=== PATIENT | female | born 1995 | race Hispanic/Latino ===

== ENCOUNTER 2024-04-02 17:16 | Emergency (ER) | payer BC, OTHER | END 2024-04-02 19:06 | disposition home or self-care (01) | LOC: CSHERS 17:16 | DX: F31.11 Bipolar disorder, current episode manic without psychotic features, mild (principal); I10 Essential (primary) hypertension; E11.9 Type 2 diabetes mellitus without complications; Z87.891 Personal history of nicotine dependence; Z79.899 Other long term (current) drug therapy | CPT/HCPCS: 99283 ==